=== PATIENT | female | born 1955 | race African-American/Black ===

== ENCOUNTER 2021-09-29 15:39 | Emergency (ER) | payer MEDICARE, MEDICAID, OTHER ==
[~2021-09-29] VITALS: Ht 160 cm; Wt 67.1 kg
[2021-09-29] MEDS ORDERED: HYDROcodone-ACET 5/325MG TAB ONE (17:44)
[2021-09-29] MEDS ORDERED: HYDROcodone-ACET 5/325MG TAB PO ONE (17:45)
[2021-09-30 00:30] VITALS: BP 155/84
== END 2021-09-30 00:45 | disposition home or self-care (01) ==
LOC: ER 15:39 → EDBD 15:39 → ER 09-30 00:45
DX: S52.612A Displaced fracture of left ulna styloid process, initial encounter for closed fracture (principal); S52.502A Unspecified fracture of the lower end of left radius, initial encounter for closed fracture; M54.50 Low back pain, unspecified; V43.62XA Car passenger injured in collision with other type car in traffic accident, initial encounter; Y93.89 Activity, other specified; Y92.488 Other paved roadways as the place of occurrence of the external cause; Y99.8 Other external cause status
CPT/HCPCS: 29125; 71045; 72100; 73110

== ENCOUNTER 2021-10-13 08:33 | Emergency (ER) | payer MEDICAID, MEDICARE, OTHER ==
[~2021-10-13] VITALS: Ht 160 cm; Wt 66.2 kg
[2021-10-13 08:35] VITALS: BP 91/68
[2021-10-13] MEDS ORDERED: HEPARIN 1,000 UNITS/ml 1ML VIAL ONE (09:18)
== END 2021-10-13 09:33 | disposition home or self-care (01) ==
LOC: ER 08:33
DX: R94.31 Abnormal electrocardiogram [ECG] [EKG] (principal); Z49.01 Encounter for fitting and adjustment of extracorporeal dialysis catheter; Z85.43 Personal history of malignant neoplasm of ovary
CPT/HCPCS: 93005; 96374; 99283; J1642; J1644

== ENCOUNTER 2021-10-26 15:35 | Emergency (ER) | payer MEDICARE, MEDICAID ==
[~2021-10-26] VITALS: Ht 160 cm; Wt 62.6 kg
[2021-10-26 15:45] VITALS: BP 124/83
== END 2021-10-26 23:08 | disposition left against medical advice (07) ==
LOC: ER 15:35
DX: F40.8 Other phobic anxiety disorders (principal)
CPT/HCPCS: 99281; J7030

== ENCOUNTER 2021-10-28 14:54 | Emergency (ER) | payer MEDICARE, MEDICAID ==
[~2021-10-28] VITALS: Ht 160 cm; Wt 62.6 kg
[2021-10-28 15:14] VITALS: BP 133/79
[2021-10-28] MEDS ORDERED: HEPARIN 1,000 UNITS/ml 1ML VIAL ONE (16:25)
[2021-10-29] MEDS ORDERED: ATOR20TA50 PO (21:16)
[2021-10-29] MEDS ORDERED: DULA1INJ SC (21:16)
[2021-10-29] MEDS ORDERED: GABA400C11 PO (21:16)
[2021-10-29] MEDS ORDERED: ONDA-180 PO (21:16)
== END 2021-10-28 16:30 | disposition home or self-care (01) ==
LOC: ER 14:54
DX: Z45.2 Encounter for adjustment and management of vascular access device (principal); I10 Essential (primary) hypertension; E78.5 Hyperlipidemia, unspecified; E11.9 Type 2 diabetes mellitus without complications
CPT/HCPCS: 96374; 99283; J1642; J1644

== ENCOUNTER 2021-10-29 11:54 | Inpatient (IN) | payer MEDICARE, MEDICAID ==
[~2021-10-29] VITALS: Ht 160 cm; Wt 69.4 kg
[2021-10-29 13:37] LABS: Basophils # (auto) 0.1 10 ^3/uL (0-0.2); Basophils % (auto) 0.8 % (0.0-2.0); Eosinophils # (auto) 0.1 10 ^3/uL (0-0.8); Lymphocytes # (auto) 1.4 10 ^3/uL (0.4-5.4); Monocytes # (auto) 0.5 10 ^3/uL (0-1.3); Monocytes % (auto) 5.8 % (0.0-12.0)
[2021-10-29 13:39] LABS: Eosinophils % (auto) 1.3 % (0.0-7.0); Hematocrit 24.5 % (36.0-46.0); Lymphocytes % (auto) 15.4 % (10.0-50.0); Mean Corpuscular Hemoglobin 23.8 pg (28.0-32.0); Mean Corpuscular Hgb Conc. 32.5 g/dL (32.0-36.0); Mean Corpuscular Volume 73.3 fL (80.0-100.0); Neutrophils % (auto) 76.7 % (37.0-80.0); Nucleated Red Blood Cells % 0.6 %; Red Blood Cells 3.35 10^6/uL (4.0-5.20); White Blood Cell 9.1 10^3/uL (4.4-10.8)
[2021-10-29 13:45] LABS: Red Cell Distribution Width 23.9 % (11.8-14.3)
[2021-10-29 13:50] LABS: Albumin 3.5 g/dL (3.4-5.0); Calcium 9.7 mg/dL (8.5-10.1); Potassium 3.2 mmol/L (3.5-5.1)
[2021-10-29 13:53] LABS: BUN/Creatinine Ratio 16.3; Bilirubin, Total 0.6 mg/dL (0.2-1.0); Total Protein 7.7 g/dL (6.4-8.2)
[2021-10-29 13:54] LABS: INR 1.06 (0.9-1.15)
[2021-10-29] MEDS ORDERED: AZITHROMYCIN 500MG/ 250ML 250 ML IV ONE (18:00)
[2021-10-29] MEDS ORDERED: ALBUTEROL SULF 2.5 MG/0.5ML(0.5%) NEB SOLN NEB PRN (18:00)
[2021-10-29] MEDS ORDERED: DEXTROSE (50%) 50ML SYRG IV PRN ×2 (18:00)
[2021-10-29] MEDS ORDERED: cefTRIAXone 1GM/50ML D5W 50 ML IV ONE (18:00)
[2021-10-29] MEDS ORDERED: MORPHINE SULFATE INJ 2 MG/ml SYRG IV PRN (18:00)
[2021-10-29] MEDS ORDERED: NITROGLYCERIN 0.4 MG SL TAB SL PRN (18:00)
[2021-10-29] MEDS ORDERED: ONDANSETRON HCL 4 MG/2 ML VIAL IV PRN (18:00)
[2021-10-29 18:17] LABS: Magnesium 1.7 mg/dL (1.6-2.6)
[2021-10-29] MEDS: SODIUM CHLORIDE 0.9% 1,000 ML IV SCH (18:36)
[2021-10-29 20:00] VITALS: BP 150/78
[2021-10-29] MEDS ORDERED: DULA1INJ SC ×2 (21:16)
[2021-10-29] MEDS ORDERED: ONDA-180 PO ×2 (21:16)
[2021-10-29] MEDS ORDERED: ATOR20TA50 PO ×2 (21:16)
[2021-10-29] MEDS ORDERED: GABA400C11 PO ×2 (21:16)
[2021-10-29 21:34] VITALS: BP 168/90
[2021-10-29] MEDS: InsuLIN REG 1unit/0.01ml Soln (100units/ml) SC SCH (21:46)
[2021-10-29] MEDS: ACCU-CHEK COMFORT CURVE STRIP VI SCH (21:46)
[2021-10-29 21:49] VITALS: BP 170/96
[2021-10-29] MEDS ORDERED: ACCU-CHEK COMFORT CURVE STRIP VI SCH (22:00)
[2021-10-29] MEDS ORDERED: InsuLIN REG 1unit/0.01ml Soln (100units/ml) SC SCH (22:00)
[2021-10-29 22:30] VITALS: BP 148/86
[2021-10-30 01:00] VITALS: BP 116/71
[2021-10-30 04:56] VITALS: BP 140/83
[2021-10-30] MEDS: InsuLIN REG 1unit/0.01ml Soln (100units/ml) SC SCH ×4 (06:55→21:31)
[2021-10-30] MEDS: ACCU-CHEK COMFORT CURVE STRIP VI SCH ×4 (06:55→21:31)
[2021-10-30 07:23] LABS: Basophils # (auto) 0 10 ^3/uL (0-0.2); Basophils % (auto) 0.7 % (0.0-2.0); Eosinophils # (auto) 0.2 10 ^3/uL (0-0.8); Hematocrit 22.6 % (36.0-46.0); Hemoglobin 7.2 g/dL (12.2-16.2); Lymphocytes # (auto) 1.6 10 ^3/uL (0.4-5.4); Monocytes # (auto) 0.5 10 ^3/uL (0-1.3); White Blood Cell 6.3 10^3/uL (4.4-10.8)
[2021-10-30 07:25] LABS: Eosinophils % (auto) 2.5 % (0.0-7.0); Lymphocytes % (auto) 25.6 % (10.0-50.0); Mean Corpuscular Hemoglobin 23.8 pg (28.0-32.0); Mean Corpuscular Hgb Conc. 31.9 g/dL (32.0-36.0); Mean Corpuscular Volume 74.6 fL (80.0-100.0); Monocytes % (auto) 7.5 % (0.0-12.0); Neutrophils % (auto) 63.7 % (37.0-80.0); Nucleated Red Blood Cells % 0.8 %; Red Blood Cells 3.03 10^6/uL (4.0-5.20)
[2021-10-30 07:35] LABS: Potassium 3.2 mmol/L (3.5-5.1)
[2021-10-30 07:45] LABS: Albumin 3.1 g/dL (3.4-5.0); BUN/Creatinine Ratio 15.6; Bilirubin, Total 0.4 mg/dL (0.2-1.0); Calcium 8.8 mg/dL (8.5-10.1); Total Protein 6.6 g/dL (6.4-8.2)
[2021-10-30] MEDS: ENOXAPARIN SOD 40 MG/0.4 ML SYRINGE SC SCH (08:52)
[2021-10-30] MEDS: MORPHINE SULFATE INJ 2 MG/ml SYRG IV PRN ×2 (08:52→13:00)
[2021-10-30] MEDS: cefTRIAXone 1GM/50ML D5W 50 ML IV SCH (08:53)
[2021-10-30] MEDS: AZITHROMYCIN 500MG/ 250ML 250 ML IV SCH (08:53)
[2021-10-30 09:00] VITALS: BP 147/85
[2021-10-30] MEDS: SODIUM CHLORIDE 0.9% 1,000 ML IV SCH (10:55)
[2021-10-30 13:00] VITALS: BP 138/87
[2021-10-30 22:00] VITALS: BP 146/78
[2021-10-30] MEDS: HYDROcodone-ACET 5/325MG TAB PO PRN (23:15)
[2021-10-31] MEDS: SODIUM CHLORIDE 0.9% 1,000 ML IV SCH (03:35)
[2021-10-31 05:00] VITALS: BP 162/87
[2021-10-31] MEDS: InsuLIN REG 1unit/0.01ml Soln (100units/ml) SC SCH ×4 (06:15→21:58)
[2021-10-31] MEDS: ACCU-CHEK COMFORT CURVE STRIP VI SCH ×4 (06:15→21:58)
[2021-10-31] MEDS: hydrALAZINE HCL 20 MG/ML VL IV PRN ×2 (06:33→20:52)
[2021-10-31 09:00] VITALS: BP 157/85
[2021-10-31 09:20] LABS: Basophils # (auto) 0.1 10 ^3/uL (0-0.2); Eosinophils # (auto) 0.1 10 ^3/uL (0-0.8); Lymphocytes # (auto) 0.8 10 ^3/uL (0.4-5.4); Mean Corpuscular Hemoglobin 23.6 pg (28.0-32.0); Mean Corpuscular Hgb Conc. 31.9 g/dL (32.0-36.0); Mean Corpuscular Volume 73.9 fL (80.0-100.0); Monocytes # (auto) 0.3 10 ^3/uL (0-1.3); Nucleated Red Blood Cells % 0.1 %; Red Cell Distribution Width 23.2 % (11.8-14.3)
[2021-10-31 09:22] LABS: Basophils % (auto) 0.8 % (0.0-2.0); Eosinophils % (auto) 1.3 % (0.0-7.0); Hematocrit 22.3 % (36.0-46.0); Hemoglobin 7.1 g/dL (12.2-16.2); Lymphocytes % (auto) 10.7 % (10.0-50.0); Monocytes % (auto) 4.7 % (0.0-12.0); Neutrophils # (auto) 6.1 10 ^3/uL (1.6-8.6); Neutrophils % (auto) 82.5 % (37.0-80.0); Red Blood Cells 3.02 10^6/uL (4.0-5.20); White Blood Cell 7.3 10^3/uL (4.4-10.8)
[2021-10-31 09:44] LABS: BUN/Creatinine Ratio 15.7; Calcium 8.7 mg/dL (8.5-10.1); Potassium 3.1 mmol/L (3.5-5.1)
[2021-10-31] MEDS: cefTRIAXone 1GM/50ML D5W 50 ML IV SCH (09:57)
[2021-10-31] MEDS: AZITHROMYCIN 500MG/ 250ML 250 ML IV SCH (11:20)
[2021-10-31] MEDS: ENOXAPARIN SOD 40 MG/0.4 ML SYRINGE SC SCH (11:20)
[2021-10-31 13:00] VITALS: BP 165/90
[2021-10-31] MEDS: POTASSIUM CHL 20MEQ/100ML 100 ML IV SCH ×2 (14:39→17:29)
[2021-10-31 16:58] VITALS: BP 167/92
[2021-10-31] MEDS: HYDROcodone-ACET 5/325MG TAB PO PRN (20:00)
[2021-10-31 22:34] VITALS: BP 178/99
[2021-11-01] MEDS: hydrALAZINE HCL 20 MG/ML VL IV PRN (04:57)
[2021-11-01] MEDS: InsuLIN REG 1unit/0.01ml Soln (100units/ml) SC SCH ×4 (04:58→21:43)
[2021-11-01] MEDS: ACCU-CHEK COMFORT CURVE STRIP VI SCH ×4 (04:58→21:42)
[2021-11-01 05:00] VITALS: BP 159/87
[2021-11-01 07:07] LABS: Eosinophils # (auto) 0.1 10 ^3/uL (0-0.8); Mean Corpuscular Hemoglobin 23.5 pg (28.0-32.0); Mean Corpuscular Hgb Conc. 32.2 g/dL (32.0-36.0)
[2021-11-01 07:10] LABS: Basophils # (auto) 0.1 10 ^3/uL (0-0.2); Basophils % (auto) 0.7 % (0.0-2.0); Hematocrit 24.1 % (36.0-46.0); Hemoglobin 7.8 g/dL (12.2-16.2); Lymphocytes # (auto) 1.5 10 ^3/uL (0.4-5.4); Lymphocytes % (auto) 16.7 % (10.0-50.0); Monocytes # (auto) 0.4 10 ^3/uL (0-1.3); Neutrophils # (auto) 6.8 10 ^3/uL (1.6-8.6); Neutrophils % (auto) 76.6 % (37.0-80.0); Nucleated Red Blood Cells % 0.3 %; White Blood Cell 8.9 10^3/uL (4.4-10.8)
[2021-11-01 07:14] LABS: Mean Corpuscular Volume 73.1 fL (80.0-100.0); Red Cell Distribution Width 23.2 % (11.8-14.3)
[2021-11-01 07:24] LABS: BUN/Creatinine Ratio 13.6; Calcium 9.5 mg/dL (8.5-10.1); Potassium 3.4 mmol/L (3.5-5.1)
[2021-11-01 09:00] VITALS: BP 118/78
[2021-11-01] MEDS: HYDROcodone-ACET 5/325MG TAB PO PRN (09:13)
[2021-11-01] MEDS: ENOXAPARIN SOD 40 MG/0.4 ML SYRINGE SC SCH (10:00)
[2021-11-01] MEDS: cefTRIAXone 1GM/50ML D5W 50 ML IV SCH (10:46)
[2021-11-01] MEDS: AZITHROMYCIN 500MG/ 250ML 250 ML IV SCH (11:11)
[2021-11-01 13:00] VITALS: BP 168/93
[2021-11-01] MEDS ORDERED: POTASSIUM EFFERVESENT TAB 25 MEQ PO ONE (13:30)
[2021-11-01 17:00] VITALS: BP 117/68
[2021-11-01 22:00] VITALS: BP 140/81
[2021-11-02 00:19] VITALS: BP 140/81
[2021-11-02 04:15] LABS: Eosinophils # (auto) 0.1 10 ^3/uL (0-0.8); Hemoglobin 7.1 g/dL (12.2-16.2); Lymphocytes # (auto) 1.4 10 ^3/uL (0.4-5.4); Lymphocytes % (auto) 17.9 % (10.0-50.0); Neutrophils # (auto) 5.7 10 ^3/uL (1.6-8.6); Nucleated Red Blood Cells % 0.5 %
[2021-11-02 04:18] LABS: Basophils # (auto) 0 10 ^3/uL (0-0.2); Basophils % (auto) 0.6 % (0.0-2.0); Eosinophils % (auto) 1.5 % (0.0-7.0); Mean Corpuscular Hemoglobin 23.3 pg (28.0-32.0); Mean Corpuscular Hgb Conc. 32.3 g/dL (32.0-36.0); Mean Corpuscular Volume 72.1 fL (80.0-100.0); Monocytes # (auto) 0.4 10 ^3/uL (0-1.3); Monocytes % (auto) 5.9 % (0.0-12.0); Neutrophils % (auto) 74.1 % (37.0-80.0); Red Blood Cells 3.05 10^6/uL (4.0-5.20); White Blood Cell 7.6 10^3/uL (4.4-10.8)
[2021-11-02 04:35] LABS: BUN/Creatinine Ratio 12.5; Calcium 9.2 mg/dL (8.5-10.1); Potassium 4.3 mmol/L (3.5-5.1)
[2021-11-02 04:36] LABS: Red Cell Distribution Width 23.6 % (11.8-14.3)
[2021-11-02 05:00] VITALS: BP 155/86
[2021-11-02] MEDS: InsuLIN REG 1unit/0.01ml Soln (100units/ml) SC SCH ×2 (06:13→12:10)
[2021-11-02] MEDS: ACCU-CHEK COMFORT CURVE STRIP VI SCH ×2 (06:13→11:30)
[2021-11-02] MEDS: ENOXAPARIN SOD 40 MG/0.4 ML SYRINGE SC SCH (08:47)
[2021-11-02] MEDS: cefTRIAXone 1GM/50ML D5W 50 ML IV SCH (08:47)
[2021-11-02] MEDS: hydrALAZINE HCL 20 MG/ML VL IV PRN (08:48)
[2021-11-02 09:00] VITALS: BP 165/92
[2021-11-02] MEDS: HYDROcodone-ACET 5/325MG TAB PO PRN (09:04)
[2021-11-02] MEDS ORDERED: AMOX500T86 PO ×2 (09:44)
[2021-11-02] MEDS: AZITHROMYCIN 500MG/ 250ML 250 ML IV SCH (09:48)
[2021-11-02 13:00] VITALS: BP 134/76
[2021-11-02 13:03] VITALS: BP 165/92
== END 2021-11-02 15:01 | disposition home or self-care (01) | DRG 754 ==
LOC: ER 11:54 → WEST WING 18:00 → CENTRAL 10-30 19:56
PROVIDERS: ADMIT Registered Nurse; ATTEND Internal Medicine Pulmonary Disease
PROC: 0W993ZZ Drainage of Right Pleural Cavity, Percutaneous Approach (ICD-10-PCS; principal; 2021-11-01)
DX: C56.9 Malignant neoplasm of unspecified ovary (principal); J18.9 Pneumonia, unspecified organism; J90 Pleural effusion, not elsewhere classified; D63.8 Anemia in other chronic diseases classified elsewhere; E11.22 Type 2 diabetes mellitus with diabetic chronic kidney disease; E78.5 Hyperlipidemia, unspecified; I12.9 Hypertensive chronic kidney disease with stage 1 through stage 4 chronic kidney disease, or unspecified chronic kidney disease; E87.6 Hypokalemia; Z20.822 Contact with and (suspected) exposure to COVID-19; N18.31 Chronic kidney disease, stage 3a; Z85.43 Personal history of malignant neoplasm of ovary; Z86.73 Personal history of transient ischemic attack (TIA), and cerebral infarction without residual deficits; Z90.710 Acquired absence of both cervix and uterus; Z91.041 Radiographic dye allergy status
CPT/HCPCS: 36415; 71045; 74176; 76604; 76942; 80048; 80053; 80061; 82962; 83036; 83735; 83880; 83986; 84443; 84484; 85025; 85610; 85730; 87040; 87070; 87205; 89051; 93005; 96365; 96375; 99291; G0378; J0696; J1815; J3480